=== PATIENT | female | born 1945 | race Caucasian/White ===

== ENCOUNTER 2017-03-03 16:53 | Inpatient (IN) | payer OTHER ==
--- NOTE | 2017-03-03 17:07 | CPEKG ---
Heart Rate: 81 RR Interval: 741 P-R Interval: 132 QRSD Interval: 86 QT Interval: 404 QTC Interval: 469 P [place]: -2 QRS [place]: 36 T Wave [place]: 55 EKG Severity - NORMAL ECG - EKG Impression: SINUS RHYTHM Electronically Signed By: Uvaldo Villarreal 03-Mar-2017 17:13:33
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
[2017-03-03 17:17] LABS: % IMMATURE GRANULYOCYTES 1.7 % (0.0-1.1); ABSOLUTE IMMATURE GRANULOCYTES 0.19 10^3/uL (0.00-0.10); ADD DIFF? NO; ADD MORPH? NO; ADD SCAN? NO; ATYPICAL LYMPHOCYTE FLAG 0 (0-99); FRAGMENT RBC FLAG 0 (0-99); HEMOGLOBIN 13.3 g/dL (12.6-16.3); LEFT SHIFT FLG 10 (0-99); LIPEMIA HEMOLYSIS FLAG 90 (0-99); MEAN CELL HEMOGLOBIN 30.6 pg (27.9-34.1); MEAN CELL HEMOGLOBIN CONCENTR. 36.9 g/dL (32.4-36.7); MEAN CELL VOLUME 82.8 fL (81.5-99.8); PLATELET CLUMPS FLAG 10 (0-99); PLATELET COUNT 365 10^3/uL (150-400); RED BLOOD CELL COUNT 4.35 10^6/uL (4.18-5.33); RED CELL DISTRIBUTION WIDTH 11.4 % (11.5-15.2)
[2017-03-03 17:29] LABS: CALCIUM 9.3 mg/dL (8.5-10.4); CARBON DIOXIDE 24 mEq/l (22-31); CHLORIDE 71 mEq/L (97-110); CREATININE 0.6 mg/dL (0.6-1.0); GLOMERULAR FILTRATION RATE > 60; GLUCOSE 111 mg/dL (70-100); POTASSIUM 3.5 mEq/L (3.5-5.2)
[2017-03-03 17:35] LABS: ANION GAP 14 mEq/L (8-16)
[2017-03-03 17:38] LABS: SODIUM 109 mEq/L (134-144)
[2017-03-03 17:57] LABS: SEDIMENTATION RATE 10 MM/HR (0-30)
[2017-03-03] MEDS ORDERED: ONDANSETRON DISINTEGRATING 4 MG TAB PO PRN (18:03)
[2017-03-03] MEDS ORDERED: IBUPROFEN 200 MG TAB PO PRN (18:03)
[2017-03-03] MEDS ORDERED: oxyCODONE IR 5 MG TAB PO PRN (18:03)
[2017-03-03] MEDS ORDERED: ONDANSETRON 4 MG/2 ML VIAL IVP PRN (18:03)
[2017-03-03] MEDS ORDERED: NS 1,000 ML IV SCH (18:15)
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
[2017-03-03] MEDS ORDERED: NS W/ 20 KCl/L 1,000 ML IV SCH (19:00)
[2017-03-03 21:28] LABS: ANION GAP 12 mEq/L (8-16); CALCIUM 8.7 mg/dL (8.5-10.4); CARBON DIOXIDE 24 mEq/l (22-31); CHLORIDE 71 mEq/L (97-110); CREATININE 0.5 mg/dL (0.6-1.0); GLOMERULAR FILTRATION RATE > 60; GLUCOSE 108 mg/dL (70-100); POTASSIUM 3.1 mEq/L (3.5-5.2)
[2017-03-03 21:29] LABS: SODIUM 107 mEq/L (134-144)
[2017-03-03 23:19] LABS: ANION GAP 10 mEq/L (8-16); CALCIUM 8.5 mg/dL (8.5-10.4); CARBON DIOXIDE 25 mEq/l (22-31); CHLORIDE 73 mEq/L (97-110); CREATININE 0.5 mg/dL (0.6-1.0); GLOMERULAR FILTRATION RATE > 60; GLUCOSE 105 mg/dL (70-100); POTASSIUM 3.2 mEq/L (3.5-5.2)
[2017-03-03 23:25] LABS: SODIUM 108 mEq/L (134-144)
[2017-03-04 02:34] LABS: ANION GAP 9 mEq/L (8-16); CALCIUM 8.2 mg/dL (8.5-10.4); CARBON DIOXIDE 24 mEq/l (22-31); CHLORIDE 76 mEq/L (97-110); CREATININE 0.4 mg/dL (0.6-1.0); GLOMERULAR FILTRATION RATE > 60; GLUCOSE 99 mg/dL (70-100); POTASSIUM 3.3 mEq/L (3.5-5.2)
[2017-03-04 02:40] LABS: SODIUM 109 mEq/L (134-144)
[2017-03-04 04:32] LABS: COLOR YELLOW; LEUKOCYTE ESTERASE,URINE TRACE (NEGATIVE); NITRITE,URINE NEGATIVE (NEGATIVE)
[2017-03-04 04:47] LABS: MUCUS TRACE /lpf (NONE-1+)
[2017-03-04 04:51] LABS: ANION GAP 12 mEq/L (8-16); CALCIUM 8.5 mg/dL (8.5-10.4); CARBON DIOXIDE 24 mEq/l (22-31); CHLORIDE 76 mEq/L (97-110); CREATININE 0.5 mg/dL (0.6-1.0); GLOMERULAR FILTRATION RATE > 60; GLUCOSE 97 mg/dL (70-100); POTASSIUM 3.6 mEq/L (3.5-5.2)
[2017-03-04 05:02] LABS: SODIUM 112 mEq/L (134-144)
[2017-03-04 06:07] LABS: % IMMATURE GRANULYOCYTES 0.7 % (0.0-1.1); ABSOLUTE IMMATURE GRANULOCYTES 0.08 10^3/uL (0.00-0.10); ADD DIFF? NO; ADD MORPH? NO; ADD SCAN? NO; ATYPICAL LYMPHOCYTE FLAG 0 (0-99); FRAGMENT RBC FLAG 0 (0-99); HEMOGLOBIN 13.1 g/dL (12.6-16.3); LEFT SHIFT FLG 0 (0-99); LIPEMIA HEMOLYSIS FLAG 90 (0-99); MEAN CELL HEMOGLOBIN 30.8 pg (27.9-34.1); MEAN CELL HEMOGLOBIN CONCENTR. 37.4 g/dL (32.4-36.7); MEAN CELL VOLUME 82.4 fL (81.5-99.8); MEAN PLATELET VOLUME 8.6 fL (8.7-11.7); PLATELET CLUMPS FLAG 10 (0-99); PLATELET COUNT 297 10^3/uL (150-400); RED BLOOD CELL COUNT 4.25 10^6/uL (4.18-5.33); RED CELL DISTRIBUTION WIDTH 11.4 % (11.5-15.2)
[2017-03-04 06:56] LABS: ALANINE AMINOTRANSFERASE 35 IU/L (9-52); ALBUMIN 3.6 g/dL (3.5-5.0); ALKALINE PHOSPHATASE 63 IU/L (38-126); ANION GAP 9 mEq/L (8-16); ASPARTATE AMINOTRANSFERASE 46 IU/L (14-46); BILIRUBIN,TOTAL 0.8 mg/dL (0.1-1.4); CALCIUM 8.1 mg/dL (8.5-10.4); CARBON DIOXIDE 23 mEq/l (22-31); CHLORIDE 80 mEq/L (97-110); CREATININE 0.4 mg/dL (0.6-1.0); GLOMERULAR FILTRATION RATE > 60; GLUCOSE 92 mg/dL (70-100); POTASSIUM 3.2 mEq/L (3.5-5.2); TOTAL PROTEIN 6.3 g/dL (6.3-8.2)
[2017-03-04 07:18] LABS: SODIUM 112 mEq/L (134-144)
[2017-03-04 07:24] LABS: CORTISOL-AM 23.4 ug/dL (4.5-22.7)
[2017-03-04] MEDS ORDERED: PROTOCOL POTASSIUM 1 DOSE MISC PRN (08:29)
[2017-03-04] MEDS ORDERED: POTASSIUM CL 10 MEQ TAB PO ONE ×2 (09:04→20:03)
[2017-03-04 09:55] LABS: ANION GAP 9 mEq/L (8-16); CALCIUM 7.9 mg/dL (8.5-10.4); CARBON DIOXIDE 23 mEq/l (22-31); CHLORIDE 79 mEq/L (97-110); CREATININE 0.4 mg/dL (0.6-1.0); GLOMERULAR FILTRATION RATE > 60; GLUCOSE 89 mg/dL (70-100); POTASSIUM 3.4 mEq/L (3.5-5.2)
[2017-03-04] MEDS: ENOXAPARIN 40 MG/0.4 ML SYR SC SCH (10:00)
[2017-03-04] MEDS: THYROID PORK 65 MG PO SCH (10:04)
[2017-03-04 10:14] LABS: SODIUM 111 mEq/L (134-144)
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
--- NOTE | 2017-03-04 11:46 | GCON ---
[f rep st] CONSULTATION NEPHROLOGY CONSULTATION DATE OF CONSULTATION: 03/04/2017 REASON FOR CONSULTATION: Severe hyponatremia. HISTORY OF PRESENT ILLNESS: This is a 72-year-old female with a past medical history significant for discoid lupus and multiple food intolerances, who now presents with severe hyponatremia. The patient is able to provide a reasonable history. She states that she was in her baseline state of health up until approximately 4 weeks ago. At that time, she noted the onset of a left-sided headache, left nasal congestion, and left eye discharge. Approximately 2 weeks later, she began having some decrease in appetite. The patient does have numerous food intolerances, and likely typically has a fairly low-protein diet. In the past 2 weeks, her food intake decreased even further. She continued to drink significant amounts, noted to be approximately 3 L per day. The patient sought care from her primary care physician, and she was noted to have abnormal labs and mental status changes. She was sent to the emergency room, and then admitted for definitive care. An initial evaluation revealed a sodium level of 109. Her urine osmolality is 302. She has hypokalemia. A cortisol level is normal at 23.4. Her blood pressure has been normal, and she appears euvolemic. The patient did receive initial normal saline. She has been on a 1500 mL fluid restriction. As related to the above issues, we are asked to assist with her renal diagnosis and management. PAST MEDICAL HISTORY: 1. Discoid lupus, followed by her primary care physician, Dr. Hussein in [place]. 2. Hypothyroidism. 3. Glaucoma. SURGICAL HISTORY: D and C. HOME MEDICATIONS: Compounded estrogen, compounded testosterone, herbal supplements, and thyroid supplements. FAMILY HISTORY: Noncontributory. SOCIAL HISTORY: The patient was born in the [place]. She has lived in [place] since 1968. 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 She does not smoke cigarettes or drink alcohol. REVIEW OF SYSTEMS: GENERAL: The patient has noted some low-grade fevers. She has had a left-sided headache. HEENT: She states she has some decreased acuity in her left eye. She denies rhinitis or sore throat. PULMONARY: She denies cough or shortness of breath. CARDIOVASCULAR: She denies chest pain or palpitations. GASTROINTESTINAL: She has had anorexia. She has not had a bowel movement in 3 days. GENITOURINARY: She denies dysuria. EXTREMITIES: She denies lower extremity edema. She denies numbness in her fingers or toes. SKIN: She denies skin rashes or skin lesions. ENDOCRINE: She has a history of thyroid disease but not diabetes. PHYSICAL EXAM: GENERAL APPEARANCE: At the time of exam, the patient is appropriate and alert. VITAL SIGNS: Temperature 36.7, pulse 68, blood pressure 145/89. HEENT: Eyes: Sclerae clear. Oropharynx: Clear. NECK: No lymphadenopathy, thyromegaly, or jugular venous distention. LUNGS: Clear to auscultation bilaterally. CARDIOVASCULAR: Regular rate and rhythm without murmurs, gallops, or rubs. ABDOMEN: Normoactive bowel sounds. Nontender. No organomegaly. AND RECTAL: Deferred. EXTREMITIES: No lower extremity edema. INTEGUMENT: The patient does have an erythematous rash over both cheeks. She also has a violaceous area at the tip of her nose. NEUROLOGIC: The patient is alert and oriented. No focal findings are noted. LABORATORY STUDIES: Sodium 112, potassium 3.6, bicarb 24, creatinine 0.3. White count 12.2, hematocrit 35, platelet count 297. Sedimentation rate 10. IMPRESSION AND PLAN: 1. Severe hyponatremia. This appears to be syndrome of inappropriate antidiuretic hormone, further exacerbated by poor solute intake and high fluid intake. At the present time, I would favor not giving her normal saline. We will place her on a more restricted fluid. We will attempt to increase her solute intake. We will follow laboratory studies every 2 hours. The patient presented at 109 and acutely went to 107. I believe a sodium level of 114-115 is an appropriate target for the first 24 hours. 2. I spent a lengthy period of time reviewing the physiology of severe hyponatremia with the patient. We also discussed our rationale for treatment, and the importance of a slow rate of correction. All of her questions were answered. 3. Hypokalemia. We will replace this. 4. Eye pain and decreased acuity. She has seen some type of eye doctor as an outpatient. I will review with the primary care service. 5. Discoid lupus. This appears to continue to be active. She has not received steroids in the past. Her current cortisol levels appear appropriate. 6. History of hypothyroidism. We will check a TSH. Thank you for allow us to participate in this lady's care. We will continue to follow along closely with you. /[id number]/MODL MTDD
[2017-03-04 11:58] LABS: ANION GAP 9 mEq/L (8-16); CALCIUM 7.4 mg/dL (8.5-10.4); CARBON DIOXIDE 22 mEq/l (22-31); CHLORIDE 84 mEq/L (97-110); CREATININE 0.4 mg/dL (0.6-1.0); GLOMERULAR FILTRATION RATE > 60; GLUCOSE 96 mg/dL (70-100); POTASSIUM 3.1 mEq/L (3.5-5.2)
[2017-03-04 12:06] LABS: SODIUM 115 mEq/L (134-144)
[2017-03-04] MEDS: POTASSIUM CL 20 MEQ TAB PO SCH (13:31)
[2017-03-04 13:57] LABS: ANION GAP 8 mEq/L (8-16); CALCIUM 8.2 mg/dL (8.5-10.4); CARBON DIOXIDE 22 mEq/l (22-31); CHLORIDE 80 mEq/L (97-110); CREATININE 0.4 mg/dL (0.6-1.0); GLOMERULAR FILTRATION RATE > 60; GLUCOSE 99 mg/dL (70-100); POTASSIUM 3.5 mEq/L (3.5-5.2)
[2017-03-04] MEDS ORDERED: DESMOPRESSIN ACETATE 2 MCG in NS 50 ML IV ONE (14:00)
[2017-03-04 14:07] LABS: SODIUM 110 mEq/L (134-144)
[2017-03-04 15:59] LABS: ANION GAP 12 mEq/L (8-16); CALCIUM 8.5 mg/dL (8.5-10.4); CARBON DIOXIDE 21 mEq/l (22-31); CHLORIDE 78 mEq/L (97-110); CREATININE 0.5 mg/dL (0.6-1.0); GLOMERULAR FILTRATION RATE > 60; GLUCOSE 95 mg/dL (70-100); POTASSIUM 3.9 mEq/L (3.5-5.2)
[2017-03-04 16:00] LABS: SODIUM 111 mEq/L (134-144)
[2017-03-04] MEDS: SODIUM CHLORIDE 1,000 MG TAB PO SCH ×2 (16:19→21:33)
[2017-03-04 17:23] LABS: ANION GAP 9 mEq/L (8-16); CALCIUM 8.3 mg/dL (8.5-10.4); CARBON DIOXIDE 22 mEq/l (22-31); CHLORIDE 80 mEq/L (97-110); CREATININE 0.4 mg/dL (0.6-1.0); GLOMERULAR FILTRATION RATE > 60; GLUCOSE 89 mg/dL (70-100); POTASSIUM 3.8 mEq/L (3.5-5.2)
[2017-03-04 17:26] LABS: SODIUM 111 mEq/L (134-144)
--- NOTE | 2017-03-04 17:47 | HOSPPROG ---
Hospitalist Progress Note Assessment/Plan: Hyponatremia - ?SIADH, etiology unclear. Cortisol nl, TSH pending. CXR clear. Pt takes multiple supplements and hormones. Also query polydipsia effect. Case d/w renal, aim for Na 115 in first 24 hrs. Correcting a bit rapidly initially. -DDAVP per renal -Salt tabs -q3h bmp Hypokalemia - replace, follow Visual acuity changes in left eye and h/o ptosis - she likely warrants brain MRI , will obtain when Na stabilized Hypothyroidism - check TSH, continue outpt meds H/O Discoid lupus Full code Dispo - cont inpt / ICU Subjective: Pt still weak, slow mentation. Her appetite is improving a bit. She reports a h/o slow metabolism. Also c/o left eye visual disturbance and son reports ptosis. Objective: Vital Signs Temp Pulse Resp BP Pulse Ox 36.9 C 75 17 153/84 H 95 03/04/17 16:00 03/04/17 16:00 03/04/17 16:00 03/04/17 16:00 03/04/17 16:00 Laboratory Results 03/04/17 06:00 03/04/17 16:55 03/03/17 03/04/17 03/05/17 05:59 05:59 05:59 Intake Total 984 400 Output Total 1000 1190 Balance -16 -790 - Physical Exam Constitutional: no apparent distress Eyes: PERRL, EOMI Ears, Nose, Mouth, Throat: moist mucous membranes Cardiovascular: regular rate and rhythym Respiratory: no respiratory distress, clear to auscultation Gastrointestinal: normoactive bowel sounds, soft, non-tender abdomen Skin: warm Neurologic: AAOx3, other (minimal left ptosis) ICD10 Worksheet Patient Problems: Problems Problem Status Onset Contusion, chest wall Acute Hyponatremia Acute
[2017-03-04 19:59] LABS: ANION GAP 10 mEq/L (8-16); CALCIUM 8.5 mg/dL (8.5-10.4); CARBON DIOXIDE 21 mEq/l (22-31); CHLORIDE 81 mEq/L (97-110); CREATININE 0.4 mg/dL (0.6-1.0); GLOMERULAR FILTRATION RATE > 60; GLUCOSE 95 mg/dL (70-100); POTASSIUM 3.8 mEq/L (3.5-5.2)
[2017-03-04 20:01] LABS: SODIUM 112 mEq/L (134-144)
[2017-03-04 22:13] LABS: ANION GAP 8 mEq/L (8-16); CALCIUM 6.5 mg/dL (8.5-10.4); CARBON DIOXIDE 18 mEq/l (22-31); CHLORIDE 98 mEq/L (97-110); CREATININE 0.4 mg/dL (0.6-1.0); GLOMERULAR FILTRATION RATE > 60; GLUCOSE 79 mg/dL (70-100); POTASSIUM 2.9 mEq/L (3.5-5.2); SODIUM 124 mEq/L (134-144)
--- NOTE | 2017-03-04 23:02 | SOAPPROG ---
SOAP Progress Note Assessment/Plan: Assessment:Plan: Hyponatremia-had been slow to correct -last lab went from 112 to 124 -discussed with RN -likely a spurious result due to technique of draw from peripheral IV -will repeat 03/04/17 22:58 Objective: Vital Signs Temp Pulse Resp BP Pulse Ox 36.6 C 74 18 154/91 H 100 03/04/17 20:00 03/04/17 20:00 03/04/17 20:00 03/04/17 20:00 03/04/17 20:00 Laboratory Results 03/04/17 06:00 03/04/17 21:45 03/03/17 03/04/17 03/05/17 05:59 05:59 05:59 Intake Total 984 1524 Output Total 1000 1190 Balance -16 334 ICD10 Worksheet Patient Problems: Problems Problem Status Onset Contusion, chest wall Acute Hyponatremia Acute
--- NOTE | 2017-03-04 23:10 | SOAPPROG ---
SOAP Progress Note Assessment/Plan: Assessment:Plan: Hyponatremia-had been slow to correct -last lab went from 112 to 124 -discussed with RN -likely a spurious result due to technique of draw from peripheral IV -will repeat Neuro-brief exam undertaken -nonfocal -no evidence for stroke -exam consistent with symptoms one would expect from hyponatremia -no reason to get imaging of her brain at this time from my point of view -RN had brought up that her son was concerned for possible stroke -I see nothing at this time to suggest this sort of event 03/04/17 23:08 Subjective: feels her appetite has improved with her current treatment Objective: Vital Signs Temp Pulse Resp BP Pulse Ox 36.6 C 74 18 154/91 H 100 03/04/17 20:00 03/04/17 20:00 03/04/17 20:00 03/04/17 20:00 03/04/17 20:00 Laboratory Results 03/04/17 06:00 03/03/17 03/04/17 03/05/17 05:59 05:59 05:59 Intake Total 984 1524 Output Total 1000 1190 Balance -16 334 Physical Exam - Physical Exam General Appearance: alert EENT: normal ENT inspection, No hearing deficit Neck: full range of motion, normal inspection, No carotid bruit Respiratory: lungs clear, normal breath sounds Cardiac/Chest: regular rate, rhythm Abdomen: normal bowel sounds Skin: normal color, warm/dry, No cyanosis Extremities: No swelling Neuro/Psych: no motor/sensory deficits, alert, normal mood/affect, other (non- focal exam), No facial droop, No motor weakness, No sensory deficit, No speech abnormalities, No disoriented to person, No disoriented to place ICD10 Worksheet Patient Problems: Problems Problem Status Onset Contusion, chest wall Acute Hyponatremia Acute
[2017-03-04 23:12] LABS: ANION GAP 8 mEq/L (8-16); CALCIUM 7.4 mg/dL (8.5-10.4); CARBON DIOXIDE 18 mEq/l (22-31); CHLORIDE 92 mEq/L (97-110); CREATININE 0.3 mg/dL (0.6-1.0); GLOMERULAR FILTRATION RATE > 60; GLUCOSE 86 mg/dL (70-100); POTASSIUM 3.4 mEq/L (3.5-5.2)
[2017-03-04 23:18] LABS: SODIUM 118 mEq/L (134-144)
[2017-03-05] MEDS ORDERED: D5W IV SCH (00:30)
[2017-03-05] MEDS ORDERED: POTASSIUM CL IV SCH (00:30)
[2017-03-05] MEDS ORDERED: DESMOPRESSIN ACETATE 4 MCG/ML INJ IV ONE (00:30)
[2017-03-05 04:07] LABS: ANION GAP 6 mEq/L (8-16); CALCIUM 6.8 mg/dL (8.5-10.4); CARBON DIOXIDE 20 mEq/l (22-31); CHLORIDE 95 mEq/L (97-110); CREATININE 0.4 mg/dL (0.6-1.0); GLOMERULAR FILTRATION RATE > 60; GLUCOSE 94 mg/dL (70-100); POTASSIUM 3.3 mEq/L (3.5-5.2); SODIUM 121 mEq/L (134-144)
[2017-03-05 06:58] LABS: ANION GAP 5 mEq/L (8-16); CALCIUM 7.3 mg/dL (8.5-10.4); CARBON DIOXIDE 20 mEq/l (22-31); CHLORIDE 90 mEq/L (97-110); CREATININE 0.3 mg/dL (0.6-1.0); GLOMERULAR FILTRATION RATE > 60; GLUCOSE 124 mg/dL (70-100); POTASSIUM 3.8 mEq/L (3.5-5.2)
[2017-03-05 07:01] LABS: SODIUM 115 mEq/L (134-144)
[2017-03-05] MEDS ORDERED: POTASSIUM CL 10 MEQ TAB PO ONE (08:29)
--- NOTE | 2017-03-05 08:35 | SOAPPROG ---
SOAP Progress Note Assessment/Plan: Assessment: 1. Severe Hyponatremia Likely SIADH, as she appears euvolemic, TSH/Cortisol/CXR ok. Her Na has been labile, likely relating to technique of drawing via IV. Currently 115, which is an appropriate increase from yesterday. Received DDAVP last pm. Continue close monitoring today. Increasing solute intake has been challenging. Nicol has multiple concerns relating to her medications and foods, which has delayed treatment at times. We will resume NaCl tablets pending additional labs. From a skilled nursing standpoint though, increasing solute intake via food may be a challenge. 2. Headache, L vision/ocular issues Pt reports chronic ptosis, but more recently has had decreased acuity in her L eye. She also has meiosis. Nicol has seen her pre coder twice in the past two weeks; apparently there were no new findings. Family requests (and I agree) that she obtain neurology consult. I have placed call and will discuss with primary service. 3. Hormone replacement I have recommended holding for at 1-2 days additionally. Subjective: Doing better Objective: Vital Signs Temp Pulse Resp BP Pulse Ox 36.6 C 78 20 148/92 H 95 03/05/17 08:02 03/05/17 08:02 03/05/17 08:02 03/05/17 08:02 03/05/17 08:02 Laboratory Results 03/04/17 06:00 03/05/17 06:35 03/04/17 03/05/17 03/06/17 05:59 05:59 05:59 Intake Total 984 2057 Output Total 1000 1790 Balance -16 267 Physical Exam - Physical Exam General Appearance: no apparent distress Respiratory: lungs clear Cardiac/Chest: regular rate, rhythm Skin: other (Facial lupus rash and violaceous area at tip of nose) Extremities: normal inspection ICD10 Worksheet Patient Problems: Problems Problem Status Onset Contusion, chest wall Acute Hyponatremia Acute
[2017-03-05] MEDS: ENOXAPARIN 40 MG/0.4 ML SYR SC SCH (09:01)
[2017-03-05] MEDS: POTASSIUM CL 20 MEQ TAB PO SCH (09:02)
[2017-03-05] MEDS: THYROID PORK 32.5 MG PO SCH (09:03)
[2017-03-05 10:58] LABS: ANION GAP 8 mEq/L (8-16); CALCIUM 8.6 mg/dL (8.5-10.4); CARBON DIOXIDE 21 mEq/l (22-31); CHLORIDE 85 mEq/L (97-110); CREATININE 0.5 mg/dL (0.6-1.0); GLOMERULAR FILTRATION RATE > 60; GLUCOSE 105 mg/dL (70-100); POTASSIUM 4.3 mEq/L (3.5-5.2)
[2017-03-05 11:07] LABS: SODIUM 114 mEq/L (134-144)
--- NOTE | 2017-03-05 11:14 | NEUROPROG ---
Assessment: Consult initiated and full report to follow. Concerns for left 3, 6th nerve dysfunction vs. Makayla's and pituitary or cavernous sinus pathology. Also considering myasthenia gravis. MRI ordered and antibodies for MG. Objective: Vital Signs Temp Pulse Resp BP Pulse Ox 36.6 C 78 20 148/92 H 95 03/05/17 08:02 03/05/17 08:02 03/05/17 08:02 03/05/17 08:02 03/05/17 08:02 Laboratory Results 03/04/17 06:00 03/05/17 09:45 03/04/17 03/05/17 03/06/17 05:59 05:59 05:59 Intake Total 984 2057 Output Total 1000 1790 400 Balance -16 267 -400 Allergies/Adverse Reactions: azithromycin Allergy (Verified 03/03/17 17:54)
[2017-03-05] MEDS ORDERED: GADOBUTROL 10 ML VIAL IVP ONE (11:23)
--- NOTE | 2017-03-05 12:20 | HOSPPROG ---
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 Cortisol nl, TSH nl. CXR clear. Pt takes multiple supplements and hormones. Case d/w renal, slowly correcting. Some issues with variable results related to lab draws. -appreciate renal assistance -Salt tabs, fluid restriction -cont frequent monitoring ?Cavernous sinus thrombosis - MRI suspicious for this, proceed with CTA. Pt agreeable. Reviewed risk of contrast nephropathy given her reduced oral intake and inability to give IVF's. MRI shows some displacement of pituitary, though nl cortisol. Neurology following, discussed case with Dr. Munoz. -If CTA pos for thrombosis, will need anti-coagulation with heparin -thrombosis risks include estrogen and testosterone use, both held since admission Hypokalemia - normalized with replacement, follow Hypothyroidism - TSH nl, continue outpt meds H/O Discoid lupus - will need outpt rheum f/u Full code Dispo - cont inpt / ICU Subjective: Pt still weak, poor appetite. No N/V. Still a bit slow with mentation per sons, who are both present at bedside all day. Objective: Vital Signs Temp Pulse Resp BP Pulse Ox 36.6 C 78 20 148/92 H 95 03/05/17 08:02 03/05/17 08:02 03/05/17 08:02 03/05/17 08:02 03/05/17 08:02 Laboratory Results 03/04/17 06:00 03/05/17 09:45 03/04/17 03/05/17 03/06/17 05:59 05:59 05:59 Intake Total 984 2057 Output Total 1000 1790 400 Balance -16 267 -400 - Physical Exam Constitutional: no apparent distress Eyes: PERRL Ears, Nose, Mouth, Throat: moist mucous membranes Cardiovascular: regular rate and rhythym Respiratory: no respiratory distress, clear to auscultation Gastrointestinal: normoactive bowel sounds, soft, non-tender abdomen Skin: warm Musculoskeletal: full muscle strength Neurologic: other (+left ptosis) ICD10 Worksheet Patient Problems: Problems Problem Status Onset Contusion, chest wall Acute Hyponatremia Acute
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
[2017-03-05] MEDS ORDERED: SODIUM CHLORIDE 1,000 MG TAB PO ONE (15:00)
[2017-03-05] MEDS ORDERED: IOPAMIDOL (ISOVUE 370) 100 ML BTL IV ONE (16:21)
--- NOTE | 2017-03-05 18:34 | SOAPPROG ---
SOAP Progress Note Assessment/Plan: Assessment: Addendum -Reviewed care plan with patient and family. She has received IV contrast, and may have some risk of JUAN. She has appeared euvolemic, (doubt cerebral salt wasting) and has received IV's and oral NaCl. BP's and HR suggest euvolemia. At this point, adding IV NS would seem unlikely to change risk post contrast. Will continue working on slow correction with fluid restriction and oral sodium , and expect increased UO with decreased influence of DDAVP. NaCl dosing has been increased. Objective: Vital Signs Temp Pulse Resp BP Pulse Ox 36.7 C 71 16 140/90 H 97 03/05/17 16:03 03/05/17 16:03 03/05/17 16:03 03/05/17 16:03 03/05/17 16:03 Laboratory Results 03/04/17 06:00 03/05/17 17:10 03/04/17 03/05/17 03/06/17 05:59 05:59 05:59 Intake Total 984 2057 736 Output Total 1000 1790 400 Balance -16 267 336 ICD10 Worksheet Patient Problems: Problems Problem Status Onset Contusion, chest wall Acute Hyponatremia Acute
[2017-03-05] MEDS: SODIUM CHLORIDE 1,000 MG TAB PO SCH ×2 (19:29→22:56)
[2017-03-06] MEDS ORDERED: DESMOPRESSIN ACETATE 4 MCG/ML INJ IV ONE (05:00)
[2017-03-06 06:46] LABS: ANION GAP 9 mEq/L (8-16); CALCIUM 8.4 mg/dL (8.5-10.4); CARBON DIOXIDE 21 mEq/l (22-31); CHLORIDE 91 mEq/L (97-110); CREATININE 0.4 mg/dL (0.6-1.0); GLOMERULAR FILTRATION RATE > 60; GLUCOSE 86 mg/dL (70-100); POTASSIUM 3.6 mEq/L (3.5-5.2); SODIUM 121 mEq/L (134-144)
[2017-03-06] MEDS: THYROID PORK 65 MG PO SCH (08:21)
[2017-03-06] MEDS: SODIUM CHLORIDE 1,000 MG TAB PO SCH ×3 (08:22→21:23)
[2017-03-06] MEDS: ENOXAPARIN 40 MG/0.4 ML SYR SC SCH (08:25)
[2017-03-06] MEDS: POTASSIUM CL 20 MEQ TAB PO SCH (08:25)
[2017-03-06] MEDS ORDERED: POTASSIUM CL 10 MEQ TAB PO ONE (08:44)
--- NOTE | 2017-03-06 10:33 | SOAPPROG ---
SOAP Progress Note Assessment/Plan: Assessment/Plan: Hyponatremia: likely has SIADH exacerbated by poor solute intake and increased fluid intake. Na 109 on presentation, slowly increasing, up to 121 this am. goal was 121 this am, 127 by tomorrow am. Pt got DDAVP again early this am. - Will change fluid restriction to 1200ml. - Will continue sodium tablets. - Will continue to monitor sodium q4h for now. Subjective: No acute events overnight. Pt still has some L sided headache and double vision , which bothers her. She is up to 1200ml fluid restriction now, got a dose of DDAVP early this morning. Objective: Vital Signs Temp Pulse Resp BP Pulse Ox 36.3 C 70 17 139/91 H 94 03/06/17 08:00 03/06/17 08:00 03/06/17 08:00 03/06/17 08:00 03/06/17 08:00 Laboratory Results 03/04/17 06:00 03/06/17 09:30 03/05/17 03/06/17 03/07/17 05:59 05:59 05:59 Intake Total 2057 1236 470 Output Total 1790 1400 500 Balance 267 -164 -30 General: alert and oriented, no acute distress OP: clear CV: RRR Resp: nonlabored respirations on RA Abd; Soft, NT/ND Ext: no edema BLE Psych: cooperative, appropriate mood and affect ICD10 Worksheet Patient Problems: Problems Problem Status Onset Contusion, chest wall Acute Hyponatremia Acute
--- NOTE | 2017-03-06 11:01 | NEUROPROG ---
Assessment: The patient has an explanation now for all of her symptoms which is the large left internal carotid artery aneurysm. She is going to have all considerations for management through Dr. Ny. He has had a thorough discussion with her children and they may also he eventually show some of the studies to neuro surgical friends. In any case, there is not emergency intervention needed, so correction of the electrolytes is appropriate and eventually conventional cerebral arteriogram is anticipated early next week with findings to help dictate the possible treatment considerations. I had additional discussions with her sons today and answered questions and talked about all of the challenges that she will face in trying to make the most informed decision possible., and I will continue to monitor her progress and be available for questions as they arise. Total unit time of 25 minutes with greater than 50% of the time counseling and coordination of care. Subjective: The patient was seen yesterday afternoon after earlier in the day as well and was sleeping this morning, so I did not see her directly, but I had detailed discussions with her sons. She has reported feeling a little bit worse overall yesterday, but my objective examination did not show significant changes. At this point, she has had neuro surgical consultation for the evaluation of what appears to be a large left internal carotid artery aneurysm. 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 Her diplopia was most evident on looking to the left but not when looking to the right. Allergies/Adverse Reactions: azithromycin Allergy (Verified 03/03/17 17:54) gluten Allergy (Verified 03/06/17 06:46)
--- NOTE | 2017-03-06 12:04 | GCON ---
[f rep st] CONSULTATION DATE OF CONSULTATION: 03/06/2017 The patient was seen and evaluated in the [facility] ICU at approximately 6:45 a.m. on 03/06/2017. I spoke to both the patient and her two sons, and answered all of their questions. HISTORY OF PRESENT ILLNESS: The patient is a 72-year-old woman with a relatively benign past medical history, who presented to the hospital for a number of different symptoms. These are pretty well detailed within the medical record already by other consultants, and the primary team. In short, she was admitted essentially for some malaise, weakness and headaches, and was found to have extreme hyponatremia, down to 114. In this workup her family says that she has had a ptosis of the left eye for probably nearly 10 years, which has been getting worse lately. They have noted some pupillary asymmetry, and currently she has diplopia with a left-sided gaze. She had seen Dr. Flores , her bricklayer paving brick, who did not note any visual acuity changes, but these other changes have been more of a chronic problem. She had imaging of the brain done with MRI and subsequent CTA, which reveals a fusiform aneurysm of the left internal carotid artery extending from the proximal petrous segment through to the ophthalmic segment. It is partially thrombosed within the cavernous sinus, and the bone is remodeled around the carotid canal in the petrous bone, suggesting the half-way nature of this aneurysm. We were consulted for further workup and management. She has never had a stroke, and has no history of subarachnoid hemorrhage. REVIEW OF SYSTEMS: Other than headaches, lethargy and malaise, as well as the visual symptoms detailed above, she has no other complaints currently. PAST MEDICAL HISTORY: 1. Discoid lupus for 25 years. 2. Hypothyroidism. 3. Chronic glaucoma. 4. Dilation and curettage. FAMILY HISTORY: No history of aneurysms within the family. SOCIAL HISTORY: Patient is a nonsmoker. She denies alcohol or other drug use. She has been quite active and independent, but lately has become more lethargic with malaise. She is accompanied by her two sons. ALLERGIES: Azithromycin. MEDICATIONS: 1. Aspirin. 2. Herbal supplements. 3. Testosterone. 4. Thyroid medication. PHYSICAL EXAM: VITAL SIGNS: Currently she is awake, alert, and oriented x3. HEENT: Her right pupil is about 4 mm, and briskly reactive. The left pupil is slightly smaller at about 3 mm, and is also reactive. She has a relatively mild to moderate ptosis of the left eye. Otherwise the face is symmetric. I do not notice any anhydrosis of the left side at this time, but she states that she has had this in the past. She has a left 6th nerve palsy and diplopia with leftward gaze, but I do not see any other ocular palsies. She notes some pain in the region behind the left eye. Otherwise she has full strength and sensation of all 4 limbs. There is no pronator drift, her deep tendon reflexes are normal. Sensation is normal. IMAGING REVIEW: See HPI. LABORATORY REVIEW: Currently the white count is 12.2, hemoglobin 13.1, hematocrit is 35.0, platelet count is 297,000. Currently today her sodium is 119, it was originally 109 on admission. Her potassium is 3.6, BUN is 9, creatinine is 0.4. Urinalysis was essentially negative with an osmolality of 302. ASSESSMENT AND PLAN: The patient is a 72-year-old woman with a simon cavernous aneurysm, fusiform aneurysm of the left internal carotid artery. I can explain the vast majority of her cavernous sinus symptoms and her left-sided Makayla syndrome as being related to this aneurysm. Luckily this type of aneurysm does not have the same usual risk of rupture, such as intracranial aneurysms, however , the large nature of the aneurysm and its thrombosis can certainly cause these type of cavernous sinus symptoms. I had a very long, extensive conversation with her and her sons regarding the possible treatment options. First, she will certainly need some more medical tune-up prior to any interventions, as I would not want to proceed with this with her extreme hyponatremia. I think the next step in her treatment would be a diagnostic angiogram to get a better anatomic sense of exactly what this aneurysm looks like, and the measurements of the proximal and distal vessels. If this appears favorable, the treatment I would favor would be pipeline embolization of the aneurysm, but we will need to make sure that the proximal carotid artery is small enough that the stents would be properly seated. If this does not look like a viable option we could do a balloon test occlusion of the left internal carotid artery, and then plan to proceed later with carotid artery sacrifice by endovascular coiling. This would also be a suitable treatment option and the aneurysm would shrink over time, and hopefully her symptoms from the cavernous sinus would improve. I did suggest that we could give her a course of steroids, Decadron, 2 or 3mg, three times a day in the short term, as this probably will help her head pain significantly, although she does not really want to take any steroids at this time, which was also fine if this is what she wishes. I told her that she likely would be in the hospital with the treatment of her hyponatremia for a few more days, and if she is still here early next week we could possibly pursue the diagnostic angiography as an inpatient if she wishes to do this. Otherwise, we very easily could also pursue this as an outpatient in the future. The family expressed some interest in getting second opinions, which is perfectly agreeable for me, in which case she could be discharged, and we could do all of the diagnostic workup and treatment as an outpatient. We would need to load her with aspirin and Plavix prior to the final pipeline treatment, if that is the choice, but they do express interest in having a diagnostic angiogram before they seek other opinions. We will follow peripherally for now , but once she is more medically stable we can proceed with diagnostic angiography whenever it is convenient, early next week. I told her I would stop by periodically if she had any further questions or concerns that I could answer. Please do not hesitate to call with any other questions or concerns, or any changes in her neurologic status, at any time. Thanks for the kind consultation. /[id number]/MODL MTDD
--- NOTE | 2017-03-06 13:29 | HOSPPROG ---
Hospitalist Progress Note Assessment/Plan: Hyponatremia - SIADH, ?possibly due to cerebral salt wasting due to below, along with decreased solute intake. Cortisol nl, TSH nl. CXR clear. Pt takes multiple supplements and hormones. Case d/w renal, has been slowly correcting. Some issues with variable results related to lab draws. -appreciate renal assistance -Salt tabs, fluid restriction -cont frequent monitoring ICA aneurysm with thrombosis - Neurosurgery consult today. Plan is for cerebral arteriogram Thursday once Na improved, followed by possible embolization vs endovascular coiling. Hypokalemia - normalized with replacement, follow Hypothyroidism - TSH nl, continue outpt meds H/O Discoid lupus - will need outpt rheum f/u Full code Dispo - cont inpt / ICU Subjective: Pt feels a bit more clear, family notes improved mentation. Appetite improved. Still some left sided headache, eyelid droop. Objective: Vital Signs Temp Pulse Resp BP Pulse Ox 36.5 C 75 15 131/76 H 95 03/06/17 11:55 03/06/17 11:55 03/06/17 11:55 03/06/17 11:55 03/06/17 11:55 Laboratory Results 03/04/17 06:00 03/06/17 12:17 03/05/17 03/06/17 03/07/17 05:59 05:59 05:59 Intake Total 2057 1236 470 Output Total 1790 1400 500 Balance 267 -164 -30 - Physical Exam Constitutional: no apparent distress Eyes: PERRL, other (left ptosis) Ears, Nose, Mouth, Throat: moist mucous membranes Cardiovascular: regular rate and rhythym Respiratory: no respiratory distress Gastrointestinal: normoactive bowel sounds, soft, non-tender abdomen Skin: warm Musculoskeletal: full muscle strength Neurologic: AAOx3 Psychiatric: interacting appropriately ICD10 Worksheet Patient Problems: Problems Problem Status Onset Carotid aneurysm, left Acute Contusion, chest wall Acute Hyponatremia Acute
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
[2017-03-06 18:00] LABS: POTASSIUM 3.5 mEq/L (3.5-5.2)
[2017-03-06] MEDS ORDERED: POTASSIUM CL 20 MEQ TAB PO ONE (23:49)
[2017-03-07 05:04] LABS: ANION GAP 8 mEq/L (8-16); CALCIUM 8.5 mg/dL (8.5-10.4); CARBON DIOXIDE 21 mEq/l (22-31); CHLORIDE 94 mEq/L (97-110); CREATININE 0.4 mg/dL (0.6-1.0); GLOMERULAR FILTRATION RATE > 60; GLUCOSE 88 mg/dL (70-100); POTASSIUM 3.4 mEq/L (3.5-5.2); SODIUM 123 mEq/L (134-144)
[2017-03-07] MEDS: POTASSIUM CL 20 MEQ TAB PO SCH (08:51)
[2017-03-07] MEDS: ENOXAPARIN 40 MG/0.4 ML SYR SC SCH (08:51)
[2017-03-07] MEDS: SODIUM CHLORIDE 1,000 MG TAB PO SCH ×3 (08:51→21:40)
[2017-03-07] MEDS: THYROID PORK 32.5 MG PO SCH (08:51)
[2017-03-07] MEDS ORDERED: POTASSIUM CL 20 MEQ/15 ML UDCUP PO ONE (09:49)
--- NOTE | 2017-03-07 09:56 | SOAPPROG ---
SOAP Progress Note Assessment/Plan: Assessment: 1. 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 Na 109 on presentation, slowly increasing, up to 123 this am. -Goal 127-130 by tomorrow am. Pt got DDAVP again early 03/06 so Na slightly drifeted down yesterday, starting to slowly rise again at appropriate rate -Continue fluid restriction 1200ml. -Continue sodium tablets. -Continue to monitor sodium q4h for now. 2. Hypokalemia - -Continue supplementation 3. Carotid artery aneurysm - -Diagnostic angio Thursday potentially if serum Na improved Plan: 03/07/17 09:50 03/07/17 10:01 Subjective: Feels better this AM. More clear-headed. No new complaints. Objective: Vital Signs Temp Pulse Resp BP Pulse Ox 37.6 C 77 11 L 145/80 H 94 03/07/17 08:00 03/07/17 08:00 03/07/17 08:00 03/07/17 08:00 03/07/17 08:00 Laboratory Results 03/04/17 06:00 03/07/17 04:25 03/06/17 03/07/17 03/08/17 05:59 05:59 05:59 Intake Total 1236 1200 Output Total 1400 1800 Balance -164 -600 Physical Exam - Physical Exam General Appearance: WD/WN Respiratory: chest non-tender, lungs clear Cardiac/Chest: regular rate, rhythm Abdomen: non-tender, soft Extremities: No swelling Neuro/Psych: no motor/sensory deficits, normal mood/affect, oriented x 3 ICD10 Worksheet Patient Problems: Problems Problem Status Onset Carotid aneurysm, left Acute Contusion, chest wall Acute Hyponatremia Acute
[2017-03-07] MEDS ORDERED: POTASSIUM CL 10 MEQ TAB PO ONE (10:18)
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
--- NOTE | 2017-03-07 14:11 | PDINTPN ---
[employer] Progress Note Assessment/Plan: Assessment: Left internal carotid aneurysm. Associated with headaches and ptosis (Makayla Syndrome). Neurosurgery has seen the patient and further evaluation, including possible stenting, is being considered. On prophylactic anticoagulation. Hyponatremia. Sodium coming up slowly. Clinically feeling better. Nephrology consulting. Plan: Continue care in the intensive care unit for now. Continue frequent sodium checks with appropriate treatment. Continue neuro checks. Subjective: Feels better overall. More steady on her feet. Eating some. Left-sided headache symptoms persist. Not severe. Objective: Vital Signs Temp Pulse Resp BP Pulse Ox 37.6 C 77 11 L 145/80 H 94 03/07/17 08:00 03/07/17 08:00 03/07/17 08:00 03/07/17 08:00 03/07/17 08:00 Laboratory Results 03/04/17 06:00 03/07/17 11:25 03/06/17 03/07/17 03/08/17 05:59 05:59 05:59 Intake Total 1236 1200 Output Total 1400 1800 Balance -164 -600 Laboratory Tests 03/07/17 03/07/17 03/07/17 00:11 04:25 11:25 Sodium 121 L 123 L 125 L Physical Exam - Physical Exam General Appearance: alert, no apparent distress, thin EENT: other (Ptosis), No PERRL/EOMI Neck: normal inspection Respiratory: lungs clear Cardiac/Chest: regular rate, rhythm Abdomen: normal bowel sounds, non-tender, soft Skin: normal color, warm/dry Extremities: No pedal edema Neuro/Psych: no motor/sensory deficits, No cognition abnormalities ICD10 Worksheet Patient Problems: Problems Problem Status Onset Carotid aneurysm, left Acute Contusion, chest wall Acute Hyponatremia Acute
[2017-03-07 18:59] LABS: POTASSIUM 3.9 mEq/L (3.5-5.2); SODIUM 126 mEq/L (134-144)
[2017-03-08 05:14] LABS: ANION GAP 7 mEq/L (8-16); CARBON DIOXIDE 23 mEq/l (22-31); CHLORIDE 95 mEq/L (97-110); CREATININE 0.5 mg/dL (0.6-1.0); GLOMERULAR FILTRATION RATE > 60; GLUCOSE 87 mg/dL (70-100); POTASSIUM 3.6 mEq/L (3.5-5.2); SODIUM 125 mEq/L (134-144)
[2017-03-08] MEDS: SODIUM CHLORIDE 1,000 MG TAB PO SCH ×3 (08:35→21:22)
[2017-03-08] MEDS: ENOXAPARIN 40 MG/0.4 ML SYR SC SCH (08:35)
[2017-03-08] MEDS: POTASSIUM CL 20 MEQ TAB PO SCH (08:36)
[2017-03-08] MEDS ORDERED: POTASSIUM CL 10 MEQ TAB PO ONE (08:51)
[2017-03-08] MEDS: THYROID PORK 32.5 MG PO SCH (10:10)
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
--- NOTE | 2017-03-08 11:38 | NEUROPROG ---
Assessment: The patient has an explanation now for all of her symptoms which is the large left internal carotid artery aneurysm. She is going to have all considerations for management through Dr. Ny. He has had a thorough discussion with her children and they may also he eventually show some of the studies to neuro surgical friends. In any case, there is not emergency intervention needed, so correction of the electrolytes is appropriate and eventually conventional cerebral arteriogram is anticipated early next week with findings to help dictate the possible treatment considerations. I had additional discussions with her sons today and answered questions and talked about all of the challenges that she will face in trying to make the most informed decision possible., and I will continue to monitor her progress and be available for questions as they arise. Total unit time of 25 minutes with greater than 50% of the time counseling and coordination of care. 03/08/17: Today's visit was predominantly counseling regarding her condition and management strategies with greater than 50% of the time counseling and coordination of care with a total unit time of 25 minutes. She is having some evidence perhaps a little more inflammation in the region with involvement of the ophthalmic division of the left trigeminal nerve clinically. Other aspects of her exam of not changed. We know that she has the large left carotid aneurysm with some thrombosis within this. There is not a clear-cut indication for adding anticoagulation at this point, but we had a good discussion with her son who is on the computer in [place] and we decided to try Decadron 6 mg oral dose to see if that might help the symptoms. She will be pursuing angiogram next week. Her son had some detailed questions which I could not answer and will have to defer to Neurosurgery for formal recommendations on anticipated angiogram procedures. Tomorrow, my partner will take over the neurologic aspects, Dr. Daly. Subjective: The patient reports that she is noticing a little bit of numbness around the left eye. The other symptoms seem to be about the same. Objective: Vital Signs Temp Pulse Resp BP Pulse Ox 36.8 C 71 14 143/88 H 95 03/08/17 08:00 03/08/17 08:00 03/08/17 08:00 03/08/17 08:00 03/08/17 08:00 Laboratory Results 03/04/17 06:00 03/08/17 04:15 03/07/17 03/08/17 03/09/17 05:59 05:59 05:59 Intake Total 1200 1250 Output Total 1800 2049 Balance -600 -800 The examination reveals the same defects of movement in the left eye laterally and ptosis with miosis. There is decreased sensation in the ophthalmic division of the left trigeminal nerve. Allergies/Adverse Reactions: azithromycin Allergy (Verified 03/03/17 17:54) gluten Allergy (Verified 03/06/17 06:46)
[2017-03-08] MEDS ORDERED: DEXAMETHASONE 4 MG TAB PO ONE (12:00)
[2017-03-08 16:49] LABS: POTASSIUM 4.2 mEq/L (3.5-5.2); SODIUM 125 mEq/L (134-144)
[2017-03-08] MEDS ORDERED: SODIUM Cl 3% 500 ML IV SCH (17:30)
--- NOTE | 2017-03-08 17:33 | SOAPPROG ---
SOAP Progress Note Assessment/Plan: Assessment: 1. 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 Na 109 on presentation -Pt got DDAVP again early 03/06 so Na slightly drifted down then, started to slowly rise again at appropriate rate -Will give 3% saline at 20cc/hr x 5 hours to help augment increase; Goal 127- 130 by tomorrow am. -Slowly increasing, but stuck at 125 over the last 24 hrs -Adjust fluid restriction to 1000ml. -Continue sodium tablets. -Continue to monitor sodium q4h for now. 2. Hypokalemia - -Improving -Continue supplementation 3. Carotid artery aneurysm - -Diagnostic angio Thursday potentially if serum Na improved -Today pt c/o numbness in L ophthalmic nerve distribution; per neuro this is well explained by her constellation of symptoms from the aneurysm Plan: 03/08/17 17:31 Subjective: Pt feels the same except she notes a little numbness in the L forehead. Objective: Vital Signs Temp Pulse Resp BP Pulse Ox 36.9 C 68 18 143/92 H 94 03/08/17 16:10 03/08/17 16:10 03/08/17 16:10 03/08/17 16:10 03/08/17 16:10 Laboratory Results 03/04/17 06:00 03/08/17 16:36 03/07/17 03/08/17 03/09/17 05:59 05:59 05:59 Intake Total 1200 1250 1000 Output Total 1800 2050 450 Balance -600 -800 550 Physical Exam - Physical Exam General Appearance: WD/WN EENT: other (L eye ptosis) Neck: non-tender Respiratory: lungs clear, normal breath sounds Cardiac/Chest: regular rate, rhythm Abdomen: non-tender, soft Extremities: No swelling Neuro/Psych: no motor/sensory deficits, other (reduced sensation L forehead) ICD10 Worksheet Patient Problems: Problems Problem Status Onset Carotid aneurysm, left Acute Contusion, chest wall Acute Hyponatremia Acute
[2017-03-09 00:20] LABS: ANION GAP 8 mEq/L (8-16); CALCIUM 9.3 mg/dL (8.5-10.4); CARBON DIOXIDE 23 mEq/l (22-31); CHLORIDE 97 mEq/L (97-110); CREATININE 0.5 mg/dL (0.6-1.0); GLOMERULAR FILTRATION RATE > 60; GLUCOSE 99 mg/dL (70-100); POTASSIUM 3.9 mEq/L (3.5-5.2); SODIUM 128 mEq/L (134-144)
[2017-03-09] MEDS: ACETAMINOPHEN 325 MG TAB PO PRN ×3 (03:00→21:04)
[2017-03-09 06:01] LABS: ANION GAP 6 mEq/L (8-16); CALCIUM 9.2 mg/dL (8.5-10.4); CARBON DIOXIDE 24 mEq/l (22-31); CHLORIDE 95 mEq/L (97-110); CREATININE 0.5 mg/dL (0.6-1.0); GLOMERULAR FILTRATION RATE > 60; GLUCOSE 113 mg/dL (70-100); POTASSIUM 3.5 mEq/L (3.5-5.2); SODIUM 125 mEq/L (134-144)
[2017-03-09] MEDS ORDERED: POTASSIUM CL 10 MEQ TAB PO ONE ×2 (07:34→12:45)
[2017-03-09] MEDS: THYROID PORK 65 MG PO SCH (07:40)
[2017-03-09] MEDS: SODIUM CHLORIDE 1,000 MG TAB PO SCH ×4 (09:40→21:06)
[2017-03-09] MEDS: POTASSIUM CL 20 MEQ TAB PO SCH (09:40)
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
--- NOTE | 2017-03-09 11:39 | SOAPPROG ---
SOAP Progress Note Assessment/Plan: Assessment: 1. 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 Sodium has been refractory. Will recheck urine indices. Will perform more aggressive fluid restriction and further increase solute intake. Will request urea by pharmacy, and plan on instituting as outpatient therapy ( 10 to 20g bid mixed in juice, taken with food). 2. Internal carotid artery aneurysm Attempt angiography and testing when Na level is stable at 130. Spent > 30 minutes in management and counseling. Subjective: Doing pretty well Objective: Vital Signs Temp Pulse Resp BP Pulse Ox 36.4 C 77 15 157/91 H 90 L 03/09/17 07:14 03/09/17 07:14 03/09/17 07:14 03/09/17 07:14 03/09/17 07:14 Laboratory Results 03/04/17 06:00 03/09/17 05:02 03/08/17 03/09/17 03/10/17 05:59 05:59 05:59 Intake Total 1250 1405 Output Total 2050 1650 600 Balance -800 -245 -600 Physical Exam - Physical Exam EENT: other (Eyelid edema is better) Respiratory: lungs clear Cardiac/Chest: regular rate, rhythm Extremities: normal inspection Neuro/Psych: oriented x 3 ICD10 Worksheet Patient Problems: Problems Problem Status Onset Carotid aneurysm, left Acute Contusion, chest wall Acute Hyponatremia Acute
[2017-03-09] MEDS: ASPIRIN 325 MG TAB PO SCH (12:54)
[2017-03-09] MEDS: ENOXAPARIN 40 MG/0.4 ML SYR SC SCH (14:26)
--- NOTE | 2017-03-09 15:47 | NEUROPROG ---
Assessment: 1. Left ICA aneurysm 35 total minutes floor time; over 50% counseling regarding the patient's left ICA aneurysm. This included time reviewing medical records, imaging Neurosurgery and neurologic notes. The patient has a left ICA aneurysm with some partial thrombus. She is on a full aspirin daily. She is scheduled for transfemoral angiogram tomorrow morning with Neurosurgery for further recommendations regarding optimal treatment of this aneurysm. She has signs referable to the cavernous sinus. I answered patient's questions. No further recommendations now Subjective: No new symptoms Objective: Vital Signs Temp Pulse Resp BP Pulse Ox 36.4 C 77 15 157/91 H 90 L 03/09/17 07:14 03/09/17 07:14 03/09/17 07:14 03/09/17 07:14 03/09/17 07:14 Laboratory Results 03/04/17 06:00 03/08/17 03/09/17 03/10/17 05:59 05:59 05:59 Intake Total 1250 1405 Output Total 2050 1650 600 Balance -800 -245 -600 Patient has numbness in the left V1, V2 distribution She has a left 6th nerve palsy Allergies/Adverse Reactions: azithromycin Allergy (Verified 03/03/17 17:54) gluten Allergy (Verified 03/06/17 06:46)
[2017-03-09 15:56] LABS: ANION GAP 9 mEq/L (8-16); CALCIUM 9.5 mg/dL (8.5-10.4); CARBON DIOXIDE 25 mEq/l (22-31); CHLORIDE 94 mEq/L (97-110); CREATININE 0.5 mg/dL (0.6-1.0); GLOMERULAR FILTRATION RATE > 60; GLUCOSE 107 mg/dL (70-100); POTASSIUM 4.4 mEq/L (3.5-5.2); SODIUM 128 mEq/L (134-144)
[2017-03-09] MEDS ORDERED: POLYETHYLENE GLYCOL 3350 17 GM PKT PO PRN (15:56)
[2017-03-09] MEDS ORDERED: MAGNESIUM HYDROXIDE 30 ML UDCUP PO PRN (15:56)
[2017-03-09] MEDS ORDERED: LACTULOSE 20 GM/30 ML UDCUP PO PRN (15:56)
[2017-03-09] MEDS ORDERED: BISACODYL 10 MG SUPP PR PRN (15:56)
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
[2017-03-09] MEDS: SENNOSIDES/DOCUSATE SODIUM TAB PO SCH (21:06)
[2017-03-10] MEDS: ACETAMINOPHEN 325 MG TAB PO PRN ×3 (03:54→22:30)
[2017-03-10 04:44] LABS: RANDOM URINE POTASSIUM 41.4 mEq/L (0.5-35.0)
[2017-03-10] MEDS: SODIUM CHLORIDE 1,000 MG TAB PO SCH ×4 (05:44→21:46)
[2017-03-10 07:01] LABS: ALBUMIN 3.4 g/dL (3.5-5.0); ANION GAP 8 mEq/L (8-16); CALCIUM 9.2 mg/dL (8.5-10.4); CARBON DIOXIDE 23 mEq/l (22-31); CHLORIDE 99 mEq/L (97-110); CREATININE 0.5 mg/dL (0.6-1.0); GLOMERULAR FILTRATION RATE > 60; GLUCOSE 109 mg/dL (70-100); POTASSIUM 3.7 mEq/L (3.5-5.2); SODIUM 130 mEq/L (134-144)
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
[2017-03-10] MEDS: THYROID PORK 32.5 MG PO SCH (08:47)
[2017-03-10] MEDS ORDERED: POTASSIUM CL 10 MEQ TAB PO ONE ×2 (09:17→21:50)
--- NOTE | 2017-03-10 10:02 | SOAPPROG ---
SOFREDDIE Progress Note Assessment/Plan: Assessment: 1. SIADH Long conversation with family today (>24min). Pt is euvolemic (though urine sodium is pending). It does seem likely that stimulus is her intracranial process. We will repeat a cortisol. Given we have the situation correcting, I would continue present therapy, and not introduce additional variables at present. Then on DC (or at least after procedures are completed) I would switch to urea and follow. I have called rx for this to pharmacy. 2. Internal carotid artery aneurysm Attempt angiography and testing when Na level is stable and more normalized. I would follow Dr. Ny's guidance on this. Subjective: Looks better Objective: Vital Signs Temp Pulse Resp BP Pulse Ox 36.6 C 80 16 150/90 H 91 L 03/10/17 07:31 03/10/17 07:31 03/09/17 20:37 03/10/17 07:31 03/10/17 07:31 Laboratory Results 03/04/17 06:00 03/10/17 06:04 03/09/17 03/10/17 03/11/17 05:59 05:59 05:59 Intake Total 1405 1000 Output Total 1650 600 400 Balance -245 400 -400 Physical Exam - Physical Exam General Appearance: other (I did not physically examine as I have URI. L eye appears stable. 0 to trace LE edema.) ICD10 Worksheet Patient Problems: Problems Problem Status Onset Carotid aneurysm, left Acute Contusion, chest wall Acute Hyponatremia Acute
--- NOTE | 2017-03-10 10:08 | SOAPPROG ---
SOFREDDIE Progress Note Assessment/Plan: Assessment: 1. SIADH Long conversation with family today (>24min). Pt is euvolemic (though urine sodium is pending). It does seem likely that stimulus is her intracranial process. We will repeat a cortisol. Given we have the situation correcting, I would continue present therapy, and not introduce additional variables at present. Then on DC (or at least after procedures are completed) I would switch to urea and follow. I have called rx for this to pharmacy. 2. Internal carotid artery aneurysm Attempt angiography and testing when Na level is stable and more normalized. I would follow Dr. Ny's guidance on this. 3. Hypertension Not ideal given aneurysm. I will fold in diuretic. 03/10/17 10:07 Objective: Vital Signs Temp Pulse Resp BP Pulse Ox 36.6 C 80 16 150/90 H 91 L 03/10/17 07:31 03/10/17 07:31 03/09/17 20:37 03/10/17 07:31 03/10/17 07:31 Laboratory Results 03/04/17 06:00 03/10/17 06:04 03/09/17 03/10/17 03/11/17 05:59 05:59 05:59 Intake Total 1405 1000 Output Total 1650 600 400 Balance -245 400 -400 ICD10 Worksheet Patient Problems: Problems Problem Status Onset Carotid aneurysm, left Acute Contusion, chest wall Acute Hyponatremia Acute
--- NOTE | 2017-03-10 10:41 | SOAPPROG ---
SOAP Progress Note Assessment/Plan: Assessment: Addendum Reviewed with patient, son, Dr. Ny. Pt's BP increasing, this is due to the NaCl. Will back off on NaCl and begin low dose loop (suspect she will respond vigorously with normal renal function). They wish to do angio today. Dr Ny is ok with this and the diuretic. Dr. Ny will only be using 50-75 cc contrast, I believe risk of THAO quite low. If needed, she can be given some NS at time of procedure. She is out of range of concern of rapid correction. Diuretic should assist with free water excretion. We also want to minimize hypertension with aneurysm. Objective: Vital Signs Temp Pulse Resp BP Pulse Ox 36.6 C 80 16 150/90 H 91 L 03/10/17 07:31 03/10/17 07:31 03/09/17 20:37 03/10/17 07:31 03/10/17 07:31 Laboratory Results 03/04/17 06:00 03/10/17 06:04 03/09/17 03/10/17 03/11/17 05:59 05:59 05:59 Intake Total 1405 1000 Output Total 1650 600 400 Balance -245 400 -400 ICD10 Worksheet Patient Problems: Problems Problem Status Onset Carotid aneurysm, left Acute Contusion, chest wall Acute Hyponatremia Acute
[2017-03-10] MEDS: FUROSEMIDE 20 MG TAB PO SCH (11:54)
[2017-03-10] MEDS: POTASSIUM CL 20 MEQ TAB PO SCH (11:54)
[2017-03-10] MEDS: ASPIRIN 325 MG TAB PO SCH (11:55)
[2017-03-10 12:39] LABS: ANION GAP 8 mEq/L (8-16); CALCIUM 9.7 mg/dL (8.5-10.4); CARBON DIOXIDE 27 mEq/l (22-31); CHLORIDE 95 mEq/L (97-110); CREATININE 0.5 mg/dL (0.6-1.0); GLOMERULAR FILTRATION RATE > 60; GLUCOSE 99 mg/dL (70-100); SODIUM 130 mEq/L (134-144)
[2017-03-10] MEDS ORDERED: IOPAMIDOL (ISOVUE-300) 100 ML BTL ONE ×2 (14:32→17:45)
[2017-03-10] MEDS ORDERED: HEPARIN 10,000 UNIT/10 ML MDV ONE ×3 (14:32→15:27)
--- NOTE | 2017-03-10 14:39 | PDANEPAE ---
ANE History of Present Illness 72yo F for cerebral angiogram ANE Past Medical History - Pulmonary History Hx Oxygen in Use at Home: No - Endocrine History Hx Diabetes: No ANE Review of Systems Review of systems is: negative ANE Patient History - Allergies Allergies/Adverse Reactions: azithromycin Allergy (Verified 03/03/17 17:54) gluten Allergy (Verified 03/06/17 06:46) - Home Medications Home Medications: Herbals/Supplements -Info Only 1 ea PO DAILY 03/03/17 [Last Taken Unknown] Thyroid,Pork [Wp Thyroid] 32.5 mg PO Q2D 03/03/17 [Last Taken Unknown] Thyroid,Pork [Wp Thyroid] 65 mg PO Q2D 03/03/17 [Last Taken Unknown] Compounded Estrogen Tab 1 each PO DAILY 03/04/17 [Last Taken Unknown] Compounded Testosterone Crm 1 each TP DAILY 03/04/17 [Last Taken Unknown] - Smoking Hx Smoking Status: Never smoked - Alcohol Use Alcohol Use: None ANE Labs/Vital Signs - Labs Result Diagrams: 03/04/17 06:00 03/10/17 12:05 - Vital Signs Blood Pressure: 150/90 Heart Rate: 80 Respiratory Rate: 16 O2 Sat (%): 91 Height: 157.48 cm Weight: 45 kg ANE Physical Exam - Airway Neck exam: FROM Mallampati Score: Class 2 Mouth exam: normal dental/mouth exam - Pulmonary Pulmonary: clear to auscultation - Cardiovascular Cardiovascular: regular rate and rhythym - ASA Status ASA Status: III ANE Anesthesia Plan Anesthesia Plan: general endotracheal anesthesia
[2017-03-10] MEDS: SENNOSIDES/DOCUSATE SODIUM TAB PO SCH ×2 (14:42→21:46)
[2017-03-10] MEDS ORDERED: PROPOFOL 200 MG/20 ML VIAL ONE (15:14)
[2017-03-10] MEDS ORDERED: NITROGLYCERIN 50 MG/10 ML SDV IV ONE (17:19)
[2017-03-10] MEDS ORDERED: PHENYLEPHRINE HCL 100 MCG/ML SYR ONE (17:25)
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
[2017-03-10 21:42] LABS: POTASSIUM 3.6 mEq/L (3.5-5.2)
[2017-03-10 23:11] VITALS: TEMP 98.1
[2017-03-11] MEDS: SODIUM CHLORIDE 1,000 MG TAB PO SCH (05:10)
[2017-03-11] MEDS: ACETAMINOPHEN 325 MG TAB PO PRN ×3 (05:10→10:27)
[2017-03-11 06:19] LABS: ALBUMIN 3.7 g/dL (3.5-5.0); ANION GAP 8 mEq/L (8-16); CALCIUM 9.8 mg/dL (8.5-10.4); CARBON DIOXIDE 26 mEq/l (22-31); CHLORIDE 96 mEq/L (97-110); CREATININE 0.5 mg/dL (0.6-1.0); GLOMERULAR FILTRATION RATE > 60; GLUCOSE 99 mg/dL (70-100); SODIUM 130 mEq/L (134-144)
[2017-03-11 06:47] LABS: CORTISOL-AM 15.8 ug/dL (4.5-22.7)
[2017-03-11] MEDS: THYROID PORK 65 MG PO SCH (07:52)
[2017-03-11 08:17] VITALS: BP 149/98; PULSE 83; RESP 15; O2SAT 95
[2017-03-11] MEDS: ASPIRIN 325 MG TAB PO SCH (09:42)
[2017-03-11] MEDS: SENNOSIDES/DOCUSATE SODIUM TAB PO SCH (09:42)
[2017-03-11] MEDS: POTASSIUM CL 20 MEQ TAB PO SCH (09:42)
[2017-03-11] MEDS: FUROSEMIDE 20 MG TAB PO SCH (09:42)
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
[2017-03-17 12:11] LABS: ACH RECEPTOR (MUSCLE) MODULATE 16 %; MG INTERPRETIVE COMMENTS See Comments; STRIATED MUSCLE ANTIBODIES Negative titer (<1:120)
== END 2017-03-11 12:53 | disposition home or self-care (01) | DRG 645 ==
LOC: EDUNIT# → F2N 19:40 → F3N 03-08 11:44
PROVIDERS: ADMIT Internal Medicine; ATTEND Family Medicine
DX: E22.2 Syndrome of inappropriate secretion of antidiuretic hormone (principal); E87.6 Hypokalemia; I67.1 Cerebral aneurysm, nonruptured; S20.219A Contusion of unspecified front wall of thorax, initial encounter; E03.9 Hypothyroidism, unspecified; L93.0 Discoid lupus erythematosus; S20.211A Contusion of right front wall of thorax, initial encounter; V48.5XXA Car driver injured in noncollision transport accident in traffic accident, initial encounter; Y92.411 Interstate highway as the place of occurrence of the external cause; H40.9 Unspecified glaucoma; H02.402 Unspecified ptosis of left eyelid; H53.2 Diplopia; H49.22 Sixth [abducent] nerve palsy, left eye; K59.00 Constipation, unspecified
CPT/HCPCS: 97116-GP; 97161-GP; 97166-GO; 97530-GO; 97532-GO; 97535-GO; A9585; C1725; C1769; C1894; G0390; G8978-GP-CJ; G8979-GP-CI; G8980-GP-CI; G8987-GO-CI; G8988-GO-CH; J1644; J1650; J2370; J2597; J2704; Q9967

== ENCOUNTER → 2017-06-05 | Outpatient (CLI) | payer OTHER, BC | LOC: FIMAGING 12:01 | DX: I67.1 Cerebral aneurysm, nonruptured (principal); Z95.828 Presence of other vascular implants and grafts ==

== ENCOUNTER → 2017-09-18 | Outpatient (CLI) | payer OTHER | LOC: FIMAGING 12:58 | DX: I72.0 Aneurysm of carotid artery (principal); Z95.828 Presence of other vascular implants and grafts ==

== ENCOUNTER → 2018-03-12 | Outpatient (CLI) | payer OTHER | LOC: FIMAGING 13:04 | DX: I72.0 Aneurysm of carotid artery (principal) ==

== ENCOUNTER → 2019-03-21 | Outpatient (CLI) | payer OTHER | LOC: FIMAGING 13:33 ==